=== PATIENT | male | born 1995 | race Caucasian/White ===

== ENCOUNTER 2016-09-10 18:45 | Emergency (ER) | payer OTHER ==
[~2016-09-10 18:45] MED LIST: AMIDATE IV ONE; ROMAZICON IV ONE; ZEMURON IV ONE
[2016-09-10] MEDS ORDERED: ZEMURON IV ONE ×2 (19:02→21:34)
[2016-09-10] MEDS ORDERED: VASELINE LIP THERAPY TP PRN (19:02)
[2016-09-10] MEDS ORDERED: ARTIFICIAL TEARS OPHTH OINT OU PRN (19:02)
[2016-09-10] MEDS ORDERED: AMIDATE IV ONE (19:02)
[2016-09-10] MEDS ORDERED: SUBLIMAZE IV ONE ×2 (19:02→20:34)
--- NOTE | 2016-09-10 19:04 | Emergency Department Report ---
ED General Adult HPI - General Chief complaint: Psych Stated complaint: SUICIDE ATTEMPT Time Seen by Provider: 09/10/16 19:00 Source: police, EMS (verbal report received from EMS. ems notes not available at time of chart dictation) Mode of arrival: Stretcher Limitations: Altered Mental Status, Physical Limitation - History of Present Illness Initial comments: This is a 21-year-old male. He is previously unknown to me. He is brought to the hospital by EMS after an attempted hanging attempt. He is brought to the hospital by EMS not in C-spine immobilization, not in spinal immobilization. On my primary survey, the patient is breathing spontaneously. He had good pulses in 4 extremities, but was not responding to command, appear to grimace response to painful stimuli, will not open eyes in response to command, and would not move extremities in response to command. Given history of trauma, altered mental status, patient not responding to commands in Spanish or [place]ian, he was intubated by myself with one attempt using video laryngoscopy with a 7.5 endotracheal tube, using in-line C-spine immobilization. Cervical collar was placed right away after intubation. Code trauma was called overhead. Of note, EMS reports that the patient's did localize painful stimuli prior to their arrival the hospital. Status post intubation, breath sounds were clear to auscultation bilaterally, had a good blood pressure, GCS of 3, no other obvious injuries on primary and secondary survey. Post intubation x-ray demonstrated the endotracheal tube to be somewhat high, so the respiratory therapist advance the tube 3 cm. This facility does not have trauma surgery or trauma backup capability, so the patient was accepted to transfer at [facility] by the trauma physician, Dr. Pavon given suicidality, patient's had a 1013 form filled out. -: Sudden Consistency: constant Improves with: none Worsens with: none Associated Symptoms: confusion - Related Data Allergies Allergy/AdvReac Type Severity Reaction Status Date / Time No Known Allergies Allergy Unverified 09/10/16 19:02 ED Review of Systems ROS: Stated complaint: SUICIDE ATTEMPT Other details as noted in HPI Comment: Unobtainable due to pts medical conditions ED Past Medical Hx - Past Medical History Hx Psychiatric Treatment: Yes - Surgical History Past Surgical History?: No - Social History Smoking Status: Unknown if ever smoked Substance Use Type: None ED Physical Exam - General Limitations: Language Barrier, Altered Mental Status, Physical Limitation General appearance: obtunded - Head Head exam: Present: atraumatic, normocephalic - Eye Eye exam: Present: normal appearance, PERRL (pupils dilated, but equally reactive to light.), other. Absent: nystagmus - ENT ENT exam: Present: normal exam, normal orophraynx, mucous membranes moist, normal external ear exam - Neck Neck exam: Present: normal inspection, full ROM. Absent: tenderness, meningismus - Respiratory Respiratory exam: Present: normal lung sounds bilaterally. Absent: respiratory distress, wheezes, rales, rhonchi, stridor, chest wall tenderness - Cardiovascular Cardiovascular Exam: Present: normal rhythm, tachycardia, normal heart sounds. Absent: systolic murmur, diastolic murmur, rubs, gallop - GI/Abdominal GI/Abdominal exam: Present: soft, normal bowel sounds. Absent: distended, tenderness, guarding, rebound, rigid, pulsatile mass - Rectal Rectal exam: Present: normal inspection, normal rectal tone - exam: Present: normal inspection External exam: Present: normal external exam - Extremities Exam Extremities exam: Present: normal inspection, normal capillary refill. Absent: tenderness, pedal edema, joint swelling, calf tenderness - Back Exam Back exam: Present: normal inspection. Absent: tenderness, CVA tenderness (R), CVA tenderness (L), muscle spasm, paraspinal tenderness - Neurological Exam Neurological exam: Present: altered - Psychiatric Psychiatric exam: Present: normal affect, normal mood - Skin Skin exam: Present: warm, dry, intact, normal color. Absent: rash ED Course Vital Signs 09/10/16 09/10/16 09/10/16 18:55 19:35 19:47 Temperature 98.8 F Pulse Rate 157 H 105 H Respiratory 12 16 Rate Blood Pressure 173/114 149/87 O2 Sat by Pulse 99 100 Oximetry 09/10/16 09/10/16 09/10/16 20:00 20:11 20:21 Temperature Pulse Rate 127 H 126 H 125 H Respiratory 16 16 20 Rate Blood Pressure 151/89 151/89 149/87 O2 Sat by Pulse 100 99 98 Oximetry 09/10/16 09/10/16 09/10/16 20:31 20:41 20:51 Temperature Pulse Rate 112 H 126 H 100 H Respiratory 15 18 19 Rate Blood Pressure 138/70 138/70 127/72 O2 Sat by Pulse 99 97 Oximetry 09/10/16 09/10/16 09/10/16 21:01 21:10 21:21 Temperature Pulse Rate 122 H 110 H 100 H Respiratory 20 14 12 Rate Blood Pressure 127/72 147/92 126/84 O2 Sat by Pulse 100 Oximetry - Intubation Sedative: Etomidate Mg Given: 20 Paralytic: Rocuronium Mg Given: 100 Laryngoscope: fiberoptic video scope Size: 3 Assist Device Used: fiberoptic device ET Tube Size: 7.5 Other Airway Intervention: passive apneic oxygenation, bvm Tube Secured Location: teeth Tube Placement Confirmation: visualized tube passing t, equal breath sounds bilat, no breath sounds over epi, confirmation by capnometr Patient Tolerated Procedure: well Intubation Complications: none ED Medical Decision Making - Lab Data Result diagrams: 09/10/16 19:08 09/10/16 19:08 Vital Signs 09/10/16 09/10/16 09/10/16 18:55 19:35 19:47 Temperature 98.8 F Pulse Rate 157 H 105 H Respiratory 12 16 Rate Blood Pressure 173/114 149/87 O2 Sat by Pulse 99 100 Oximetry 09/10/16 20:00 Temperature Pulse Rate 127 H Respiratory 16 Rate Blood Pressure 151/89 O2 Sat by Pulse 100 Oximetry Vital Signs 09/10/16 09/10/16 09/10/16 18:55 19:35 19:47 Temperature 98.8 F Pulse Rate 157 H 105 H Respiratory 12 16 Rate Blood Pressure 173/114 149/87 O2 Sat by Pulse 99 100 Oximetry 09/10/16 20:00 Temperature Pulse Rate 127 H Respiratory 16 Rate Blood Pressure 151/89 O2 Sat by Pulse 100 Oximetry Lab Results 09/10/16 09/10/16 09/10/16 Range/Units 19:08 19:08 19:08 WBC 5.6 (4.5-11.0) K/mm3 RBC 5.53 H (3.65-5.03) M/mm3 Hgb 16.1 H (11.8-15.2) gm/dl Hct 47.3 H (35.5-45.6) % MCV 85 (84-94) fl MCH 29 (28-32) pg MCHC 34 (32-34) % RDW 13.1 L (13.2-15.2) % Plt Count 191 (140-440) K/mm3 Lymph % (Auto) 27.6 (13.4-35.0) % Gregory % (Auto) 11.8 H (0.0-7.3) % Eos % (Auto) 0.8 (0.0-4.3) % Baso % (Auto) 0.5 (0.0-1.8) % Lymph # 1.6 (1.2-5.4) K/mm3 Gregory # 0.7 (0.0-0.8) K/mm3 Eos # 0.0 (0.0-0.4) K/mm3 Baso # 0.0 (0.0-0.1) K/mm3 Seg Neutrophils % 59.3 (40.0-70.0) % Seg Neutrophils # 3.3 (1.8-7.7) K/mm3 PT 13.7 (12.2-14.9) Sec. INR 1.06 (0.87-1.13) APTT 27.5 (24.2-36.6) Sec. Sodium 138 (137-145) mmol/L Potassium 3.6 (3.6-5.0) mmol/L Chloride 99.4 (98-107) mmol/L Carbon Dioxide 24 (22-30) mmol/L Anion Gap 18 mmol/L BUN 10 (9-20) mg/dL Creatinine 0.9 (0.8-1.5) mg/dL Estimated GFR > 60 ml/min BUN/Creatinine Ratio 11.11 % Glucose 110 H (75-100) mg/dL Calcium 9.2 (8.4-10.2) mg/dL Total Bilirubin 1.3 H (0.1-1.2) mg/dL AST 19 (5-40) units/L ALT 13 (7-56) units/L Alkaline Phosphatase 86 (35-129) units/L Total Creatine Kinase 99 (55-170) units/L Troponin T < 0.010 (0.00-0.029) ng/mL Total Protein 6.9 (6.3-8.2) g/dL Albumin 4.4 (3.9-5) g/dL Albumin/Globulin Ratio 1.8 % Salicylates (2.8-20.0) mg/dL Acetaminophen (10.0-30.0) ug/mL Plasma/Serum Alcohol (0-0.07) gm% 09/10/16 09/10/16 09/10/16 Range/Units 19:08 19:08 19:08 WBC (4.5-11.0) K/mm3 RBC (3.65-5.03) M/mm3 Hgb (11.8-15.2) gm/dl Hct (35.5-45.6) % MCV (84-94) fl MCH (28-32) pg MCHC (32-34) % RDW (13.2-15.2) % Plt Count (140-440) K/mm3 Lymph % (Auto) (13.4-35.0) % Gregory % (Auto) (0.0-7.3) % Eos % (Auto) (0.0-4.3) % Baso % (Auto) (0.0-1.8) % Lymph # (1.2-5.4) K/mm3 Gregory # (0.0-0.8) K/mm3 Eos # (0.0-0.4) K/mm3 Baso # (0.0-0.1) K/mm3 Seg Neutrophils % (40.0-70.0) % Seg Neutrophils # (1.8-7.7) K/mm3 PT (12.2-14.9) Sec. INR (0.87-1.13) APTT (24.2-36.6) Sec. Sodium (137-145) mmol/L Potassium (3.6-5.0) mmol/L Chloride (98-107) mmol/L Carbon Dioxide (22-30) mmol/L Anion Gap mmol/L BUN (9-20) mg/dL Creatinine (0.8-1.5) mg/dL Estimated GFR ml/min BUN/Creatinine Ratio % Glucose (75-100) mg/dL Calcium (8.4-10.2) mg/dL Total Bilirubin (0.1-1.2) mg/dL AST (5-40) units/L ALT (7-56) units/L Alkaline Phosphatase (35-129) units/L Total Creatine Kinase (55-170) units/L Troponin T (0.00-0.029) ng/mL Total Protein (6.3-8.2) g/dL Albumin (3.9-5) g/dL Albumin/Globulin Ratio % Salicylates < 0.3 L (2.8-20.0) mg/dL Acetaminophen < 15.0 (10.0-30.0) ug/mL Plasma/Serum Alcohol < 0.01 (0-0.07) gm% - EKG Data EKG shows normal: sinus rhythm Rate: tachycardia - Radiology Data Radiology results: report reviewed, image reviewed interpreted by me: X-ray chest negative for acute disease. Endotracheal tube at the level of the clavicle. Noncontrast CT scan of the Critical Care Time: Yes Critical care time in (mins) excluding proc time.: 35 Critical care attestation.: If time is entered above; I have spent that time in minutes in the direct care of this critically ill patient, excluding procedure time. Critical Care Time: critical care time includes multiple bedside evaluations, interpretation of laboratory studies, radiology studies, time spent managing a patient with self- inflicted injury requiring intubation and transfer to trauma center. This is exclusive of procedure time. ED Disposition Clinical Impression: Hanging Qualifiers: Encounter type: initial encounter Qualified Code(s): T71.164A - Asphyxiation due to hanging, undetermined, initial encounter Disposition: DC/TX SHORT-TERM GEN HOSP INPT Is pt being admited?: No Does the pt Need Aspirin: No Condition: Critical Referrals: PRIMARY CARE, [Primary Care Provider] - 3-5 Days
[2016-09-10 19:20] LABS: Basophils % (Auto) 0.5 % (0.0-1.8); Eosinophils % (Auto) 0.8 % (0.0-4.3); Hematocrit 47.3 % (35.5-45.6); Hemoglobin 16.1 gm/dl (11.8-15.2); Mean Corpuscular HGB Conc 34 % (32-34); Mean Corpuscular Hemoglobin 29 pg (28-32); Mean Corpuscular Volume 85 fl (84-94); Platelet Count 191 K/mm3 (140-440); Red Blood Count 5.53 M/mm3 (3.65-5.03); Red Cell Distribution Width 13.1 % (13.2-15.2); White Blood Count 5.6 K/mm3 (4.5-11.0)
--- NOTE | 2016-09-10 19:22 | XRay Report ---
FINAL REPORT EXAM: XR CHEST 1V AP HISTORY: Trauma/ETT PLACEMENT TECHNIQUE: AP portable view of the chest PRIORS: None. FINDINGS: Lines, tubes, and devices: Endotracheal tube has been placed with the tip terminating above the level of the clavicles. Lungs and pleura: Trachea is normal in position. Lungs are clear of infiltrate, pleural effusion, vascular congestion, or pneumothorax. Cardiomediastinal silhouette: Cardiac and mediastinal silhouettes are unremarkable. Other: Bony structures are intact. IMPRESSION: No acute cardiopulmonary process seen.
[2016-09-10 19:29] LABS: INR 1.06 (0.87-1.13)
[2016-09-10 19:30] LABS: Partial Thromboplastin Time 27.5 Sec. (24.2-36.6)
[2016-09-10 19:45] LABS: Alanine Aminotransferase 13 units/L (7-56); Albumin 4.4 g/dL (3.9-5); Albumin/Globulin Ratio 1.8 %; Alkaline Phosphatase 86 units/L (35-129); BUN/Creatinine Ratio 11.11; Bilirubin,Total 1.3 mg/dL (0.1-1.2); Blood Urea Nitrogen 10 mg/dL (9-20); Calcium 9.2 mg/dL (8.4-10.2); Carbon Dioxide 24 mmol/L (22-30); Chloride 99.4 mmol/L (98-107); Creatine Kinase 99 units/L (55-170); Glucose 110 mg/dL (75-100); Potassium 3.6 mmol/L (3.6-5.0); Sodium 138 mmol/L (137-145); Total Protein 6.9 g/dL (6.3-8.2)
--- NOTE | 2016-09-10 19:46 | Cat Scan Report ---
FINAL REPORT EXAM: CT HEAD/BRAIN WO CON HISTORY: Trauma TECHNIQUE: Standard unenhanced CT of the head at 5.0 millimeter axial increments. PRIORS: None. FINDINGS: The ventricular system is normal in size and configuration. There is no evidence for parenchymal volume loss. There is no evidence for mass lesion, mass effect, midline shift, acute intracranial hemorrhage, or acute ischemia/ infarction. No evidence for acute skull fracture is seen. No abnormality in the overlying scalp soft tissues is seen. Mucosal thickening in the left maxillary and ethmoid sinuses bilaterally is seen. There also congestion of the nasal cavities. IMPRESSION: Negative CT of the head. No acute intracranial process noted. chronic sinusitis.
[2016-09-10 19:54] LABS: Anion Gap 18 mmol/L
--- NOTE | 2016-09-10 19:55 | Cat Scan Report ---
FINAL REPORT EXAM: CT CERVICAL SPINE WO CON HISTORY: Trauma . Neck injury. Patient tried to hang himself. TECHNIQUE: Standard CT cervical spine obtained at 2.5 millimeter axial increments. Coronal and sagittal reconstruction was also performed. PRIORS: None. FINDINGS: The vertebral bodies are intact. There is no evidence for acute fracture. There is no evidence for paravertebral soft tissue swelling. Alignment is maintained. There is osteophytic bridging anteriorly to C2-C3. Narrowing of the C2-C3 disc space is noted. There is fluid filling the oropharynx through which an endotracheal tube traverses. IMPRESSION: 1. no acute abnormality of the cervical spine. 2. Fluid filling the oropharynx which can be correlated clinically 3. degenerative changes at C2-C3 anteriorly.
[2016-09-10] MEDS ORDERED: DIPRIVAN 10 MG/ML 1,000 MG/100 ML BOTTLE IV SCH (20:00)
[2016-09-10] MEDS ORDERED: DILAUDID IV ONE (20:40)
[2016-09-10] MEDS ORDERED: DILAUDID ONE (20:44)
[2016-09-10] MEDS ORDERED: ZOFRAN IV ONE (21:00)
[2016-09-10] MEDS ORDERED: ZOFRAN ONE (21:02)
[2016-09-10] MEDS ORDERED: fentaNYL DRIP Premix 2,000 MCG/100 ML BAG IV ONE (21:19)
[2016-09-10] MEDS ORDERED: fentaNYL DRIP Premix 2,000 MCG/100 ML BAG IV SCH (22:00)
[2016-09-10 22:10] VITALS: BP 129/78
== END 2016-09-10 22:10 | disposition short-term general hospital (02) ==
LOC: EEVIPCON 18:45 → ED 18:45
DX: T71.164A Asphyxiation due to hanging, undetermined, initial encounter (principal); Y92.9 Unspecified place or not applicable
CPT/HCPCS: 31500; 36415; 51702; 70450; 71010; 72125; 80053; 82550; 84484; 85025; 85610; 85730; 87070; 87205; 93005; 93010; 96374; 96375; 96376; 99291; G0480; J1170; J2405; J2704; J3010; 80320; 94002